=== PATIENT | female | born 1950 | race Caucasian/White ===

== ENCOUNTER 2018-01-06 08:10 | Day surgery (SDC) | payer MEDICARE, OTHER ==
[2018-01-06] MEDS ORDERED: PROPOFOL 60 ML (09:52)
[2018-01-06] MEDS ORDERED: LIDOCAINE 2% (SDV) 5 ML INJ (09:52)
== END 2018-01-06 11:17 | disposition home or self-care (01) ==
LOC: GIL 08:10
DX: Z12.11 Encounter for screening for malignant neoplasm of colon (principal); D12.0 Benign neoplasm of cecum; K57.30 Diverticulosis of large intestine without perforation or abscess without bleeding; K64.8 Other hemorrhoids; I10 Essential (primary) hypertension; E11.9 Type 2 diabetes mellitus without complications; E78.5 Hyperlipidemia, unspecified
CPT/HCPCS: 45385; 88305